=== PATIENT | male | born 1955 ===

== ENCOUNTER 2021-05-31 10:51 | Outpatient (CLI) | payer BC, SELFPAY ==
--- NOTE | 2021-05-31 10:45 | RT.EKG_ITS ---
APPROVED REPORT Exam: Resting ECG Reason for Exam: [employer]/ Baseline for office visit Patient Location: O HR:71 bpm ECG Measurements Heart Rate 71 AXIS UT 160 P 61 QRSd 80 QRS -28 QT 380 T 51 QTc 413 Conclusion Sinus rhythm...normal P axis, V-rate 50- 99 Borderline left axis deviation...QRS axis (-15,-29) Abnormal R-wave progression, early transition...QRS area>0 in V2 Borderline T wave abnormalities...T/QRS ratio < 1/20 or flat T
== END 2021-05-31 10:52 | disposition home or self-care (01) ==
LOC: DI.CARD 10:51
PROVIDERS: PCP Internal Medicine; Visit Provider Internal Medicine Cardiovascular Disease
DX: R07.9 Chest pain, unspecified (principal)
CPT/HCPCS: 93010